=== PATIENT | male | born 1965 ===

== ENCOUNTER 2017-07-20 10:58 | Day surgery (SDC) | payer OTHER ==
--- NOTE | 2017-07-07 14:51 | HP ---
CC: Dr. Miguel Angel Tapia* DATE OF ADMISSION: 07/20/2017. ATTENDING SURGEON: Dr. Thaddeus Narayanan * (JIMMY Antonio dictating). CHIEF COMPLAINT: Right inguinal hernia. HISTORY OF PRESENT ILLNESS: This is a 51-year-old, generally healthy male with at least a four to five year history of right inguinal hernia, first noted on routine exam with his PCP. He has had occasional symptoms of mild pain or discomfort, particularly after strenuous activity during this time. He was initially evaluated by Dr. Narayanan and at that time, because the hernia was minimally symptomatic and small and reducible, the decision was made to defer surgical intervention. He was seen again last year with the same conclusion. More recently, he was in to see Dr. Narayanan on 05/19/2017 with really no significant change in symptoms or size of the hernia. Dr. Narayanan's exam at that time continued to show a small reducible nontender right inguinal hernia which appeared to be direct in nature. There was no hernia appreciated on the left. Dr. Narayanan again had discussion with him regarding the indications, risks, benefits and alternatives of surgery. Tentative plans were made for repair in the spring; however, the day following that visit the patient did again experience some pain in the right groin following strenuous activity, which took a total of about two weeks to improve. The bulge has always been self-reducing and he has had no significant associated GI or symptoms. At this point, the patient would like to proceed as scheduled with laparoscopic repair right inguinal hernia with mesh. He understands the expected perioperative course. PAST MEDICAL HISTORY: No active or significant past medical problems. PAST SURGICAL HISTORY: He has had a couple of right knee arthroscopies for ligamentous injury and repair without any complications. No other surgeries. CURRENT MEDICATIONS: 1. Naproxen 500 mg b.i.d. prn recently for back pain, but not currently using. 2. He also used a muscle relaxer recently, but not in the past two weeks. 3. Glucosamine supplement daily. DRUG ALLERGIES: PENICILLIN (no actual reaction, he states that it just did not work well for him). FAMILY HISTORY: No significance in terms of anesthesia problems, bleeding or clotting disorders. SOCIAL HISTORY: The patient is . He has two children. He is a pantry worker. He is a nonsmoker. He drinks between two and three drinks per week on average and denies other recreational drug use. REVIEW OF SYSTEMS: General: No recent constitutional symptoms or acute illnesses. Cardiovascular: No chest pain, palpitations, or history of heart murmur. Respiratory: No history of asthma, chronic cough or shortness of breath. GI: No problems reported. At this point, he has not had a screening colonoscopy. He will discuss that with his PCP. : He does note nocturia times two to three which has been ongoing and without change. He has no other voiding symptoms to report. Endocrine: No diabetes or thyroid dysfunction. PHYSICAL EXAMINATION GENERAL: Well-nourished, well-developed male in no acute distress. SKIN: Warm and dry, no suspicious rashes or lesions. VITAL SIGNS: Height 73 inches, weight 180 pounds. Temperature 98.5, blood pressure 122/80, pulse 76, respirations 16. HEENT: Pupils equal, round, reactive. EOM's intact. No conjunctival pallor. Oropharynx: Teeth in good repair. No intraoral lesions. NECK: No lymphadenopathy, thyromegaly, or masses. LUNGS: Clear to auscultation. No wheezes. HEART: Regular rate and rhythm. No murmur noted. ABDOMEN: Soft, nontender to palpation. No palpable masses or organomegaly. Right groin bulge as described in the HPI per Dr. Narayanan's exam. No hernia on the left. Exam not repeated today. BACK: No spinous process or CVA tenderness. EXTREMITIES: No edema. RECTAL: Not done. NEUROLOGIC: Grossly intact. IMPRESSION: Right inguinal hernia. PLAN: Laparoscopic repair right inguinal hernia with mesh. JIMMY ANTONIO [id number]/[facility] #: [id number] CATHY
[~2017-07-20 10:58] MED LIST: Buffered Lidocaine 0.9% SYRIN* 5 ML/SYR SYRINGE INTRADERM ONE; Sodium Citrate/Citric Acid* 15 ML UDC PO ONE
[2017-07-20] MEDS ORDERED: Buffered Lidocaine 0.9% SYRIN* 5 ML/SYR SYRINGE ONE (10:59)
[2017-07-20] MEDS ORDERED: ceFAZolin 2 GM PREMIX (*) 2 GM/50 ML BAG IVPB ONE (10:59)
[2017-07-20] MEDS ORDERED: Sodium Citrate/Citric Acid* 15 ML UDC ONE (10:59)
[2017-07-20] MEDS ORDERED: Bupivacaine 0.25% SDV* 30 ML ONE (12:52)
[2017-07-20] MEDS ORDERED: Dexamethasone IV* 4 MG/ML 1 ML (4 MG) ONE (12:58)
[2017-07-20] MEDS ORDERED: Lidocaine 2% PF * 5 ML VIAL ONE (12:58)
[2017-07-20] MEDS ORDERED: Glycopyrrolate IV* 0.2 MG/ML 1 ML VIAL ONE (12:58)
[2017-07-20] MEDS ORDERED: Propofol* 10 MG/ML 20 ML BTL IV PUSH ONE (12:58)
[2017-07-20] MEDS ORDERED: Neostigmine Methylsulfate* 2 MG/2 ML SYRINGE ONE (12:58)
[2017-07-20] MEDS ORDERED: Midazolam* 1 MG/ML 2 ML VIAL (2 MG) ONE (12:59)
[2017-07-20] MEDS ORDERED: fentaNYL* 50 MCG/ML 2 ML VIAL (100 MCG VIAL) ONE ×4 (12:59→15:38)
[2017-07-20] MEDS ORDERED: Cisatracurium* 2 MG/ML MDV 5 ML ONE (13:08)
[2017-07-20] MEDS ORDERED: Ondansetron INJ* 2 MG/ML VIAL IV PRN (15:10)
[2017-07-20] MEDS ORDERED: oxyCODONE/Acetamin 5/325 MG* TAB PO PRN (15:14)
[2017-07-20] MEDS: fentaNYL* 50 MCG/ML 2 ML VIAL (100 MCG VIAL) IV PRN ×2 (15:31→15:37)
[2017-07-20] MEDS ORDERED: oxyCODONE/Acetamin 5/325 MG* TAB ONE (16:27)
[2017-07-20 16:56] VITALS: BP 121/80
--- NOTE | 2017-07-21 13:10 | OP ---
DATE OF OPERATION: 07/20/17 [facility] DATE OF : 67 SURGEON: Thaddeus Narayanan MD DISTRICT WILDLIFE MANAGER: JIMMY Lakhani ANESTHESIOLOGIST: Dr. Fontana. ANESTHESIA: Local with general. PRE-OP DIAGNOSIS: Right inguinal hernia. POST-OP DIAGNOSIS: Right direct inguinal hernia. OPERATIVE PROCEDURE: Totally extraperitoneal repair of a direct inguinal hernia with a Bard 3D Max large mesh. ESTIMATED BLOOD LOSS: Minimal. IV FLUIDS: 1 L of crystalloid. DRAINS: None. SPECIMENS: None. WOUND CLASSIFICATION: I. FINDINGS: The patient has had a moderate-sized right direct inguinal hernia, which was quite adherent to the anterior abdominal wall. In addition, the balloon dissector dissected some of the posterior sheath off the rectus muscle dissecting the proximal portion of the right inferior epigastric artery posteriorly, which was identified and protected from injury throughout. 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 This has been bothering him more and more during physical activities increased in size. He has a reducible moderate-sized right inguinal hernia. He is now to undergo an elective repair. DESCRIPTION OF PROCEDURE: Written informed consent was obtained, the right groin was marked with indelible ink and preoperative antibiotics were administered. The patient was taken to the operating room and placed in the supine position. Sequential compression devices and a warming blanket were applied. General anesthesia was administered. A Sarkar catheter was inserted. The abdomen and both groins were prepped and draped in the usual sterile fashion. Time-out verification was completed. Initially, a small transverse incision was made just below the umbilicus just to the right of midline extending over the right anterior rectus sheath. This was identified and divided sharply transversely to expose the midline as well as the rectus muscle. The muscle was retracted laterally to expose the posterior rectus sheath. Using a Prerna clamp and subsequent a digital dissection, the space was developed inferiorly down the midline towards the pubic tubercle. Next, the space maker balloon device was placed into the space and advanced subcutaneously down to the pubic tubercle where this was easily felt with the tip of the device. The camera was inserted into the balloon, and this was then insufflated with about 20 squeezes of the insufflator attempting to try to selectively insufflate the right side of the balloon greater than the left. Once this was done, the balloon was deflated and removed and a 12-mm blunt port was inserted into the preperitoneal space and insufflated to 15 mmHg. Upon entering the camera, there was evidence that the balloon dissector had disrupted some of the rectus sheath and the posterior rectus fascia more inferiorly causing this to expose the rectus muscle and in addition the right inferior epigastric vessels had been dissected off the anterior abdominal wall into a more posterior position. There was no significant bleeding noted as there was a raw muscle in this area and somewhat more superiorly, which was carefully evaluated. There appeared to be no evidence of disruption of the peritoneum and we maintained insufflation without difficulty throughout the remainder of the case. Initially, the pubic tubercle and the right Rahul's ligament were identified. There was some fascial adventitial tissue, which was taken down to expose the more medial aspect of Rahul's ligament. Also noted was the fatty tissue adherent up into what appeared to be the direct space consistent with a direct space hernia. With care, I was able to reduce this fat and there was the pseudosac noted, and we were able to identify a rather large direct space hernia that with some difficulty was reduced, but we were able to expose the entirety of the defect in the direct space. Then care was made to reflect the inferior epigastric vessels on this side more anteriorly, and we went along to identify the bladder and abdominal wall in the right, the iliopubic tract as well as the anterior iliac crest where we stopped the dissection. I then started to follow the lateral peritoneal reflection medially towards the indirect space. There was a lipoma out through the indirect ring, which I reduced but I identified no indirect inguinal hernia sac. The peritoneum was followed more medially down in towards the pelvis and areas was reflected back in preparation for mesh placement. The position of the epigastric vessels made this somewhat cumbersome, but I was able to skeletonize these up some more superiorly where I was able to retract them anteriorly, and I felt that the mesh could be placed in its usual position for repair. Next, a large Bard 3D Max mesh was opened and wet with saline. It was rolled and passed into the preperitoneal space through the 12-mm blunt port. This was easily lined up along the pubic tubercle and the right Rahul's ligament with generous overlap of the midline. I was then able to pass the mesh through the space between the epigastric vessels and the spermatic cord including the vas deferens, which I should mention was identified clearly and protected from injury throughout. The mesh opened up nicely more laterally on to the anterior abdominal wall and covered the indirect space well. I was also pleased that the direct space was covered nicely with generous overlap especially, more anteriorly on the anterior abdominal wall. Once the mesh was in position and I assured myself that the peritoneal reflection was not in proximity to the mesh along the retroperitoneum, the CapSure device was used to tack the mesh once to the Rahul's ligament, once to the anterior abdominal wall medial to the epigastric vessels and once to the anterior abdominal wall lateral to the epigastric vessels to pin the epigastric vessels up to the abdominal wall in their anatomic position. Hemostasis was assured. Once again, I evaluated the exposed rectus muscle on the right and there was no evidence of significant bleeding or hematoma formation. The extraperitoneal space was desufflated under direct vision using a grasper, two dissectors to hold the mesh to the anterior abdominal wall sealed up against the wall with the peritoneum. All ports were then removed. The anterior abdominal rectus sheath was closed with interrupted 0 Polysorb suture. The skin was approximated with subcuticular 3-0 Polysorb suture. Steri-Strips were applied. The patient tolerated the procedure well and was taken to the recovery room in stable condition. [id number]/[facility] #: [id number] MTDD
== END 2017-07-20 16:56 | disposition home or self-care (01) ==
LOC: OR 10:58
PROVIDERS: ATTEND Surgery
DX: K40.90 Unilateral inguinal hernia, without obstruction or gangrene, not specified as recurrent (principal)
CPT/HCPCS: A9270-GY; C1781; J0690; J1100; J2250; J2704; J3010